=== PATIENT | female | born 1940 | race Caucasian/White ===

== ENCOUNTER 2016-11-06 15:25 | Emergency (ER) | payer MEDICAID, MEDICARE ==
--- NOTE | 2016-11-06 15:51 | ER Document Report ---
ED Medical Screen (RME) - General Chief Complaint: Weakness Stated Complaint: WEAKNESS AND RASH Time Seen by Provider: 11/06/16 15:43 Mode of Arrival: Wheelchair Information source: Patient, Relative Notes: 76-year-old female history of dementia presents with complaints of a rash. Son notes that she has difficulty remembering if she is having bowel movements or urinating on herself and now has a rash secondary to this. Son also notes patient has had intermittent episodes of weakness I have greeted and performed a rapid initial assessment of this patient. A comprehensive ED assessment and evaluation of the patient, analysis of test results and completion of the medical decision making process will be conducted by additional ED providers. PHYSICAL EXAMINATION: GENERAL: Well-appearing, well-nourished and in no acute distress. HEAD: Atraumatic, normocephalic. EYES: Pupils equal round extraocular movements intact, conjunctiva are normal. ENT: Nares patent NECK: Normal range of motion LUNGS: No respiratory distress Musculoskeletal: Normal range of motion NEUROLOGICAL: History of dementia patient does have random statements that son states is normal for her PSYCH: Normal mood, normal affect. SKIN: Warm, Dry, normal turgor, no rashes or lesions noted. TRAVEL OUTSIDE OF THE [place] IN LAST 30 DAYS: No - HPI Onset: Last week Onset/Duration: Persistent Quality of pain: No pain Severity: Mild Pain Level: Denies - Related Data Allergies/Adverse Reactions: ezetimibe [From Zetia] Allergy (Verified 11/06/16 15:42) Iodinated Contrast- Oral and IV Dye [IV Dye, Iodine Containing] Allergy ( Verified 11/06/16 15:42) nitroglycerin [From Nitro-Dur] Allergy (Verified 11/06/16 15:42) Sulfa (Sulfonamide Antibiotics) Allergy (Verified 11/06/16 15:42) Home Medications: Current Home Medications Atorvastatin Calcium 20 mg PO DAILY 11/06/16 [History] Citalopram Hydrobromide [Celexa 10 mg Tablet] 10 mg PO DAILY 11/06/16 [History] Donepezil HCl [Aricept 5 mg Tablet] 5 mg PO DAILY 11/06/16 [History] Hydrochlorothiazide 25 mg PO DAILY 11/06/16 [History] Nitrofurantoin Monohyd/M-Cryst [Macrobid 100 mg Capsule] 100 mg PO BID 11/06/16 [History] Past Medical History - Past Medical History Cardiac Medical History: Reports: Hx Heart Attack - date unknown Denies: Hx Coronary Artery Disease, Hx Hypertension Pulmonary Medical History: Reports: Hx Asthma, Hx Bronchitis Denies: Hx COPD Neurological Medical History: Denies: Hx Cerebrovascular Accident, Hx Seizures Renal/ Medical History: Denies: Hx Peritoneal Dialysis Musculoskeltal Medical History: Denies Hx Arthritis Past Surgical History: Reports: Hx Hysterectomy Physical Exam - Vital signs Vitals: Temp Pulse Resp BP Pulse Ox 98.0 F 86 12 106/56 L 93 11/06/16 15:30 11/06/16 15:30 11/06/16 15:30 11/06/16 15:30 11/06/16 15:30 Course - Vital Signs Vital signs: Temp Pulse Resp BP Pulse Ox 98.0 F 86 12 106/56 L 93 11/06/16 15:30 11/06/16 15:30 11/06/16 15:30 11/06/16 15:30 11/06/16 15:30
[2016-11-06 16:20] LABS: ABSOLUTE BASOPHILS # (AUTO) 0.1 10^3/uL (0.0-0.2); ABSOLUTE LYMPHOCYTES (AUTO) 0.6 10^3/uL (0.5-4.7); ABSOLUTE MONOCYTES (AUTO) 0.6 10^3/uL (0.1-1.4); ABSOLUTE NEUT (AUTO) 10.4 10^3/uL (1.7-8.2); BASOPHILS % (AUTO) 0.6 % (0-2); EOSINOPHILS % (AUTO) 0.3 % (0-6); HEMATOCRIT 42.7 % (36.0-47.0); HEMOGLOBIN 14.8 g/dL (12.0-15.5); HGB HCT DIFFERENCE 1.7; LYMPHOCYTES % (AUTO) 5.3 % (13-45); MEAN CORPUSCULAR HEMOGLOBIN 30.6 pg (27.0-33.4); MEAN CORPUSCULAR HGB CONC 34.6 g/dL (32.0-36.0); MEAN CORPUSCULAR VOLUME 88 fl (80-97); MONOCYTES % (AUTO) 5.4 % (3-13); RED BLOOD COUNT 4.83 10^6/uL (3.72-5.28); RED CELL DISTRIBUTION WIDTH 12.9 % (11.5-14.0); SEGMENTED NEUTROPHILS % (AUTO) 88.4 % (42-78); WHITE BLOOD COUNT 11.7 10^3/uL (4.0-10.5)
[2016-11-06 16:38] LABS: ALANINE AMINOTRANSFERASE 25 U/L (9-52); ALBUMIN 3.9 g/dL (3.5-5.0); ALKALINE PHOSPHATASE 109 U/L (38-126); ASPARTATE AMINO TRANSFERASE 25 U/L (14-36); BILIRUBIN,DIRECT 0.4 mg/dL (0.0-0.4); BILIRUBIN,TOTAL 0.9 mg/dL (0.2-1.3); BLOOD UREA NITROGEN 23 mg/dL (7-20); CALCIUM 9.1 mg/dL (8.4-10.2); CHLORIDE 78 mmol/L (98-107); GLUCOSE 201 mg/dL (75-110); SODIUM 136.1 mmol/L (137-145); TOTAL PROTEIN 7.4 g/dL (6.3-8.2)
[2016-11-06 16:45] LABS: ANION GAP 14 (5-19)
[2016-11-06 16:46] LABS: POTASSIUM 2.6 mmol/L (3.6-5.0)
--- NOTE | 2016-11-06 16:46 | ER Document Report ---
ED General - General Mode of Arrival: Wheelchair Information source: Patient TRAVEL OUTSIDE OF THE [place] IN LAST 30 DAYS: No <GEETA RYAN - Last Filed: 11/06/16 20:13> <KEITH HOPKINS - Last Filed: 11/06/16 23:08> - General Chief Complaint: Weakness Stated Complaint: WEAKNESS AND POSSIBLE RASH Time Seen by Provider: 11/06/16 15:43 Notes: Patient is a 76 year old female that presents to the emergency department today with complaints of "bed sores" on her buttocks. Son at bedside states that the patient has "dementia" and sometimes forgets to go to the bathroom and she soils herself. Son states when giving the patient a bath she noticed what appear to be bedsores on her buttocks. Son at bedside is also requesting that the patient be placed in a fdc facility but sites insurance difficulties as to why he is unable to set this up currently, requests further assistance. (GEETA RYAN) - Related Data Allergies/Adverse Reactions: ezetimibe [From Zetia] Allergy (Verified 11/06/16 15:42) Iodinated Contrast- Oral and IV Dye [IV Dye, Iodine Containing] Allergy ( Verified 11/06/16 15:42) nitroglycerin [From Nitro-Dur] Allergy (Verified 11/06/16 15:42) Sulfa (Sulfonamide Antibiotics) Allergy (Verified 11/06/16 15:42) Home Medications: Current Home Medications Atorvastatin Calcium 20 mg PO DAILY 11/06/16 [History] Citalopram Hydrobromide [Celexa 10 mg Tablet] 10 mg PO DAILY 11/06/16 [History] Donepezil HCl [Aricept 5 mg Tablet] 5 mg PO DAILY 11/06/16 [History] Hydrochlorothiazide 25 mg PO DAILY 11/06/16 [History] Nitrofurantoin Monohyd/M-Cryst [Macrobid 100 mg Capsule] 100 mg PO BID 11/06/16 [History] Past Medical History - General Information source: Patient, Relative - Social History Smoking Status: Former Smoker Cigarette use (# per day): No Frequency of alcohol use: None Drug Abuse: None Lives with: Family Family History: Reviewed & Not Pertinent - Past Medical History Cardiac Medical History: Reports: Hx Heart Attack - date unknown Pulmonary Medical History: Reports: Hx Asthma, Hx Bronchitis Past Surgical History: Reports: Hx Hysterectomy <SHELBYGEETA - Last Filed: 11/06/16 20:13> Review of Systems - Review of Systems Constitutional: No symptoms reported EENT: No symptoms reported Cardiovascular: No symptoms reported Respiratory: No symptoms reported Gastrointestinal: No symptoms reported Genitourinary: No symptoms reported Female Genitourinary: No symptoms reported Musculoskeletal: No symptoms reported Skin: See HPI, Other - "sores on butt" Hematologic/Lymphatic: No symptoms reported Neurological/Psychological: No symptoms reported -: Yes All other systems reviewed and negative <SHELBY,GEETA - Last Filed: 11/06/16 20:13> Physical Exam <LITA RYANON - Last Filed: 11/06/16 20:13> <KEITH HOPKINS - Last Filed: 11/06/16 23:08> - Vital signs Vitals: Temp Pulse Resp BP Pulse Ox 98.0 F 86 12 106/56 L 93 11/06/16 15:30 11/06/16 15:30 11/06/16 15:30 11/06/16 15:30 11/06/16 15:30 - Notes Notes: Physical Exam: General: Alert, appears well. HEENT: Normocephalic. Atraumatic. PERRL. Extraocular movements intact. Oropharynx clear. Neck: Supple. Non-tender. Respiratory: No respiratory distress. Clear and equal breath sounds bilaterally. Cardiovascular: Regular rate and rhythm. Abdominal: Normal Inspection. Non-tender. No distension. Normal Bowel Sounds. Back: Non-tender. No deformity or step off. Extremities: Moves all four extremities. Upper extremities: Normal inspection. Normal ROM. Lower extremities: Normal inspection. No edema. Normal ROM. Neurological: Normal cognition. AAOx4. Normal speech. Psychological: Normal affect. Normal Mood. Skin: Excoriated diaper rash around buttocks. (GEETA RYAN) Course - Laboratory Result Diagrams: 11/06/16 16:08 11/06/16 16:08 <GEETA RYAN - Last Filed: 11/06/16 20:13> - Laboratory Result Diagrams: 11/06/16 16:08 11/06/16 16:08 <KEITH HOPKINS - Last Filed: 11/06/16 23:08> - Re-evaluation Re-evalutation: 11/06/16 18:24 Patient presents emergency room with her son with a chief complaint of skin rash in her genital area. Patient states that the mother has dementia and they have been trying to work as an outpatient to get her into a shelter facility. He says that he takes care of her exclusively that she occasionally forgets that she has to urinate wears depends when he went to change her he noticed a rash a few days ago. She has a excoriated diaper rash present a minor urinary tract infection is awake alert hemodynamically stable and afebrile. Her potassium is little bit low which is consistent with not eating well. She has no acute emergent concerns for needing IV potassium. Went ahead and gave her oral replacement here she is going to go home on oral potassium high any but paste for her rash Macrobid for UTI and discussed reasons for ED follow-up (KEITH HOPKINS) - Vital Signs Vital signs: Temp Pulse Resp BP Pulse Ox 98.1 F 77 16 131/64 H 95 11/06/16 18:31 11/06/16 18:31 11/06/16 18:31 11/06/16 18:31 11/06/16 18:31 - Laboratory Laboratory results interpreted by me: 11/06/16 11/06/16 11/06/16 16:08 16:08 17:01 WBC 11.7 H Seg Neutrophils % 88.4 H Lymphocytes % 5.3 L Absolute Neutrophils 10.4 H Sodium 136.1 L Potassium 2.6 L* Chloride 78 L Carbon Dioxide 44 H* BUN 23 H Glucose 201 H Urine Protein 100 H Urine Glucose (UA) 50 H Urine Blood SMALL H Urine Bilirubin SMALL H Urine Urobilinogen 4.0 H Ur Leukocyte Esterase TRACE H Discharge <GEETA RYAN - Last Filed: 11/06/16 20:13> <KEITH HOPKINS - Last Filed: 11/06/16 23:08> - Discharge Clinical Impression: Hypokalemia, mild uti, Excoriated rash Condition: Stable Disposition: HOME, SELF-CARE Additional Instructions: Hypokalemia You have an abnormally decreased level of serum potassium. Hypokalemia may cause weakness, fatigue, or heart rhythm abnormalities. Sometimes there are no symptoms at all. Usually, low serum potassium is due to taking diuretics ( water pills). It can also be due to excessive vomiting or diarrhea. If no obvious cause is evident, further evaluation will be necessary. Treatment is usually oral potassium supplements. Take these exactly as prescribed. You may also want to select foods which are naturally high in potassium -- fruits (such as bananas, cantaloupe, grapes, oranges, prunes, tomatoes), fresh vegetables (potatoes, spinach, beans, peas), orange or tomato juice, tomato pasta sauce, milk, fish (halibut, tuna, salmon, rk) A follow-up blood test is usually performed to assure that the potassium is returning to normal. Call the physician if you suffer severe weakness, muscle twitching or cramping, palpitations (pounding or irregular heartbeat), or any other new or alarming symptoms. Diaper Rash Your has diaper dermatitis. This rash can be caused by prolonged contact with urine or stools, or may be due to an infection by angelina (yeast). Diaper dermatitis often follows treatment with antibiotics, due to changes in the stool. Prescription ointments are used for severe cases, or cases where yeast seems to be responsible. Many [id number] powders or creams actually cause or worsen diaper dermatitis. Once diaper dermatitis has begun, it is very important to keep the baby dry. Even a short time in a wet or soiled diaper can make the dermatitis flare. Wash baby's bottom frequently in plain warm water, especially when changing the diaper after a bowel movement. Let the skin air-dry several minutes before diapering. Leaving baby undiapered for a few hours daily can help. Healing may take two weeks. See the doctor if the rash worsens, or if other alarming symptoms arise. Urinary Tract Infection Your evaluation indicates that you have a urinary tract infection. This is due to germs growing in the bladder. This is a common problem. This infection usually responds quickly to antibiotics. Your antibiotic should be taken exactly as prescribed. Drink plenty of fluids -- three to four quarts a day. Occasionally, a bladder anesthetic will be prescribed to help stop the feeling of urgency until the antibiotic has a chance to clear the infection. This may cause your urine to be dark orange. Certain urine infections require a culture. If the doctor obtained a culture, the results will be back in two days. You should call to see if a change in treatment is needed. A repeat urinalysis after you finish treatment is often recommended. The physician will let you know if further testing is required. Call the doctor if you develop fever, chills, flank pain, inability to urinate, or blood in the urine. Prescriptions: Miscellaneous Medication [Happy Hiney Cream] 1 applic TOP ASDIR PRN #30 gm PRN Reason: Nitrofurantoin/Nitrofuran Mac [Macrobid 100 mg Capsule] 1 tab PO BID #20 capsule Potassium Bicarbonate/Cit AC [K-Lyte Tablet Eff] 25 meq PO DAILY #10 tablet.eff Referrals: NOEL AWAD MD [Primary Care Provider] - (In 2-3 days return for increasing worsening or new symptoms) Scribe Attestation: 11/06/16 18:23 I personally performed the services described in the documentation reviewed the documentation recorded by my scribe in my presence and it accurately and completely records my words and actions (KEITH HOPKINS) Scribe Documentation - Scribe Written by Scrsaie:: Karson Ordaz, 11/06/20162011 acting as scribe for :: David <GEETA RYAN - Last Filed: 11/06/16 20:13>
[2016-11-06 16:47] LABS: CARBON DIOXIDE 44 mmol/L (22-30)
[2016-11-06] MEDS ORDERED: POTASSIUM CHLORIDE 20 MEQ/15 ML UDCUP PO ONE (16:48)
[2016-11-06 17:18] LABS: APPEARANCE,URINE CLOUDY; BILIRUBIN,URINE SMALL (NEGATIVE); GLUCOSE, URINE 50 mg/dL (NEGATIVE); KETONES,URINE NEGATIVE (NEGATIVE); LEUKOCYTE ESTERASE,URINE TRACE (NEGATIVE); NITRITE,URINE NEGATIVE (NEGATIVE); PROTEIN,URINE 100 mg/dL (NEGATIVE); URINE SPECIFIC GRAVITY 1.027
[2016-11-06] MEDS ORDERED: NITROFURANTOIN MONOHYD/M-CRYST 100 MG CAPSULE PO ONE (18:03)
[2016-11-06 18:33] VITALS: BP 131/64
== END 2016-11-06 18:46 | disposition home or self-care (01) ==
LOC: ER 15:25
DX: E87.6 Hypokalemia (principal); R21 Rash and other nonspecific skin eruption; R53.1 Weakness; Z79.899 Other long term (current) drug therapy; Z87.891 Personal history of nicotine dependence
CPT/HCPCS: 99285; 51701; 36415; 85025; 80053; 81001; A9270

== ENCOUNTER 2017-03-29 21:31 | Emergency (ER) | payer MEDICARE ==
--- NOTE | 2017-03-29 21:41 | ER Document Report ---
ED Fall - General Chief Complaint: Fall Stated Complaint: FALL/NOSE PAIN Time Seen by Provider: 03/29/17 21:35 Notes: Patient is a 76-year-old female who tripped getting off the couch and landed on her nose. She initially had some epistaxis, which has resolved. Not on any blood thinners and she denies LOC. Tetanus is UTD. Denies neck pain, loose teeth , open wounds or any other injuries. TRAVEL OUTSIDE OF THE [place] IN LAST 30 DAYS: No - Related data Allergies/Adverse Reactions: ezetimibe [From Zetia] Allergy (Verified 11/06/16 15:42) Iodinated Contrast- Oral and IV Dye [IV Dye, Iodine Containing] Allergy ( Verified 11/06/16 15:42) nitroglycerin [From Nitro-Dur] Allergy (Verified 11/06/16 15:42) Sulfa (Sulfonamide Antibiotics) Allergy (Verified 11/06/16 15:42) Past Medical History - General Information source: Patient, Emergency Med Personnel - Social History Smoking Status: Unknown if Ever Smoked Family History: Reviewed & Not Pertinent - Past Medical History Cardiac Medical History: Reports: Hx Heart Attack - date unknown Denies: Hx Coronary Artery Disease, Hx Hypertension Pulmonary Medical History: Reports: Hx Asthma, Hx Bronchitis Denies: Hx COPD Neurological Medical History: Denies: Hx Cerebrovascular Accident, Hx Seizures Renal/ Medical History: Denies: Hx Peritoneal Dialysis Musculoskeltal Medical History: Denies Hx Arthritis Past Surgical History: Reports: Hx Hysterectomy Review of Systems - Review of Systems Notes: REVIEW OF SYSTEMS: CONSTITUTIONAL: -fevers, -chills EENT: -eye pain, -difficulty swallowing, -nasal congestion, +nasal pain CARDIOVASCULAR:-chest pain, -syncope. RESPIRATORY: -cough, -SOB GASTROINTESTINAL: -abdominal pain, -nausea, -vomiting, -diarrhea GENITOURINARY: -dysuria, -hematuria MUSCULOSKELETAL: -back pain, -neck pain SKIN: -rash or skin lesions. HEMATOLOGIC: -easy bruising or bleeding. LYMPHATIC: -swollen, enlarged glands. NEUROLOGICAL: -altered mental status or loss of consciousness, -headache, - neurologic symptoms PSYCHIATRIC: -anxiety, -depression. ALL OTHER SYSTEMS REVIEWED AND NEGATIVE. Physical Exam - Vital signs Vitals: Temp Pulse Resp BP Pulse Ox 97.5 F 77 16 161/72 H 100 03/29/17 21:49 03/29/17 21:49 03/29/17 21:49 03/29/17 21:49 03/29/17 21:49 - Notes Notes: PHYSICAL EXAMINATION: GENERAL: Well-appearing, well-nourished and in no acute distress. HEAD: Atraumatic, normocephalic. EYES: Pupils equal round and reactive to light, extraocular movements intact, sclera anicteric, conjunctiva are normal. ENT: small abrasions over nose, no active epistaxis or septal hematoma, no nasal deformity, nares patent, oropharynx clear without exudates. Moist mucous membranes. NECK: Normal range of motion, supple without lymphadenopathy LUNGS: Breath sounds clear to auscultation bilaterally and equal. No wheezes rales or rhonchi. HEART: Regular rate and rhythm without murmurs ABDOMEN: Soft, nontender, normoactive bowel sounds. No guarding, no rebound. No masses appreciated. EXTREMITIES: Normal range of motion, no pitting or edema. No cyanosis. NEUROLOGICAL: Cranial nerves grossly intact. Normal speech, normal gait. Normal sensory and motor exams. PSYCH: Normal mood, normal affect. SKIN: Warm, Dry, normal turgor, no rashes or lesions noted. Course - Re-evaluation Re-evalutation: Patient with a mechanical fall and abrasions over her nose, no active epistaxis or septal hematoma. CT face and head obtained due to age, but this did not show any acute fractures or intracranial abnormalities. Instructed her about using anti-inflammatories and ice packs for her nasal contusion with strict return precautions. - Vital Signs Vital signs: Temp Pulse Resp BP Pulse Ox 97.5 F 77 16 161/72 H 100 03/29/17 21:49 03/29/17 21:49 03/29/17 21:49 03/29/17 21:49 03/29/17 21:49 - Diagnostic Test Radiology reviewed: Image reviewed, Reports reviewed Radiology results interpreted by me: CT Head/Facial: NAD Discharge - Discharge Clinical Impression: Epistaxis Contusion of nose Qualifiers: Encounter type: initial encounter Qualified Code(s): S00.33XA - Contusion of nose, initial encounter Condition: Stable Disposition: HOME, SELF-CARE Additional Instructions: Nosebleed Instructions There is a significant chance of re-bleeding following a nosebleed. Proper care makes this less likely. Do not touch the nose for 24 hours. Do not blow the nose forcefully for one week. After 24 hours, gently apply Vaseline ointment to both nostrils with the tip of a finger, three times a day, for one week. It's normal to have a bloody mucous discharge for a few days. If active bleeding recurs, blow all the blood from the nose, then sit quietly and pinch the nose as firmly as possible for 10 minutes. If this does not stop the bleeding, return for further care. If packing was left in the nose and it starts to come out of the nostril, either tuck it back in or cut it off. Don't pull it out. Return for recheck and removal of the packing when instructed. Persons with frequent nosebleeds should avoid aspirin (unless prescribed for another reason). Humidity in the bedroom, and petroleum jelly applied to the nostrils at night may help. Contusion Your injury has resulted in a contusion -- a crushing of the deep tissues. No injury to important structures was detected during the physician's exam. Contusions vary in the amount of pain they cause, and in the length of time required for healing. Typically, the area will become bruised, and will remain painful to touch for two or three weeks. However, most patients are back to working and playing within a few days. After the initial period of rest and cold-packs, your symptoms (together with the doctor's recommendations) will determine how rapidly you can get back to full activity. Usually this means "do what feels okay, but don't do things that hurt." If re-examination was recommended, it's important to follow up as instructed. Call the doctor or return any time if pain increases, if swelling becomes severe, if you develop numbness or weakness in an injured extremity, or if any other alarming symptoms occur. Forms: Elevated Blood Pressure
[2017-03-29 21:53] VITALS: BP 161/72
--- NOTE | 2017-03-29 22:36 | RADIOLOGY REPORT (SQ) ---
EXAM DESCRIPTION: CT HEAD WITHOUT COMPLETED DATE/TIME: 03/29/2017 9:55 pm REASON FOR STUDY: fall COMPARISON: None. TECHNIQUE: Axial images acquired through the brain without intravenous contrast. Images reviewed wi th bone, brain and subdural windows. Images stored on PACS. All CT scanners at this facility use dose modulation, iterative reconstruction, and/or weight based d osing when appropriate to reduce radiation dose to as low as reasonably achievable (ALARA). [facility]: Dose Right [facility]: CareDose [facility]: Dose Right [facility]: Teradose 4D [facility]: [employer] RADIATION DOSE: CT Rad equipment meets quality standard of care and radiation dose reduction techniq ues were employed. CTDIvol: 64.6 mGy. DLP: 1034 mGy-cm. mGy. LIMITATIONS: None. FINDINGS: VENTRICLES: Normal size and contour. CEREBRUM: No masses. No hemorrhage. No midline shift. No evidence for acute infarction. Normal gra y/white matter differentiation. No areas of low density in the white matter. CEREBELLUM: No masses. No hemorrhage. No alteration of density. No evidence for acute infarction. EXTRAAXIAL SPACES: No fluid collections. No masses. ORBITS AND GLOBE: No intra- or extraconal masses. Normal contour of globe without masses. CALVARIUM: No fracture. PARANASAL SINUSES: No fluid or mucosal thickening. SOFT TISSUES: No mass or hematoma. OTHER: No other significant finding. IMPRESSION: No acute intracranial findings. EVIDENCE OF ACUTE STROKE: NO. COMMENT: Quality ID # [id number]: Final reports with documentation of one or more dose reduction techniques (e.g., Automated exposure control, adjustment of the mA and/or kV according to patient size, use of iterative reconstruction technique) TECHNICAL DOCUMENTATION: JOB ID: [id number] [place]-72 2010 [employer]- All Rights Reserved
--- NOTE | 2017-03-29 22:38 | RADIOLOGY REPORT (SQ) ---
EXAM DESCRIPTION: CT FACIAL AREA WITHOUT COMPLETED DATE/TIME: 03/29/2017 9:55 pm REASON FOR STUDY: fall COMPARISON: None. TECHNIQUE: Noncontrasted images through the facial bones and orbits windowed for bone and soft tissu e. Additional coronal and sagittal reconstructed images reviewed. All images stored on PACS. All CT scanners at this facility use dose modulation, iterative reconstruction, and/or weight based d osing when appropriate to reduce radiation dose to as low as reasonably achievable (ALARA). [facility]: Dose Right [facility]: CareDose [facility]: Dose Right [facility]: Teradose 4D [facility]: [employer] RADIATION DOSE: CT Rad equipment meets quality standard of care and radiation dose reduction techniq ues were employed. CTDIvol: 30.4 mGy. DLP: 591 mGy-cm. mGy. LIMITATIONS: None. FINDINGS: FACIAL BONES: No fracture or bone lesion. ORBITS: Intact. No fracture. Symmetric intact globes and retroorbital soft tissues. PARANASAL SINUSES: Clear. No significant mucosal thickening, mass or fluid. No nasal polyps. Maxill jordan sinus outlets are patent. SOFT TISSUES: No mass or edema. INFERIOR BRAIN: Limited view. No acute findings. OTHER: No other significant finding. IMPRESSION: NO ACUTE FINDINGS. TECHNICAL DOCUMENTATION: JOB ID: [id number] [place]-72 Quality ID # [id number]: Final reports with documentation of one or more dose reduction techniques (e.g., Au tomated exposure control, adjustment of the mA and/or kV according to patient size, use of iterative reconstruction technique) 2010 [employer]- All Rights Reserved
== END 2017-03-29 23:27 | disposition home or self-care (01) ==
LOC: ER 21:31
DX: S00.33XA Contusion of nose, initial encounter (principal); J34.89 Other specified disorders of nose and nasal sinuses; R04.0 Epistaxis; W01.0XXA Fall on same level from slipping, tripping and stumbling without subsequent striking against object, initial encounter
CPT/HCPCS: 70450; 70486; 99284

== ENCOUNTER → 2017-08-29 | Outpatient (CLI) | payer MEDICARE, MEDICAID | LOC: OD 10:17 | PROVIDERS: ATTEND Specialist | DX: F03.90 Unspecified dementia, unspecified severity, without behavioral disturbance, psychotic disturbance, mood disturbance, and anxiety (principal) | CPT/HCPCS: 36415; 82607 ==

== ENCOUNTER 2018-09-19 23:20 | Emergency (ER) | payer MEDICARE, OTHER ==
--- NOTE | 2018-09-20 00:44 | RADIOLOGY REPORT (SQ) ---
EXAM DESCRIPTION: CT HEAD WITHOUT IV CONTRAST, CT CERVICAL SPINE WITHOUT IV CONTRAST COMPLETED DATE/TME: 09/20/2018 00:04 CLINICAL HISTORY: 78 years, Female, fall, head trauma COMPARISON: None. TECHNIQUE: CT brain and cervical spine was performed without contrast. This exam was performed according to our departmental dose optimization program which includes use of automated exposure control, adjustment of the mA and/or kV according to patient size and/or use of iterative reconstruction technique. Images stored on PACS. All CT scanners at this facility use dose modulation, iterative reconstruction, and/or weight based dosing when appropriate to reduce radiation dose to as low as reasonably achievable (ALARA). [facility]: Dose Right [facility]: CareDose [facility]: Dose Right [facility]: Teradose 4D [facility]: [employer] LIMITATIONS: None. FINDINGS: Brain: Multifocal regions of patchy hypoattenuation are present in a subcortical and periventricular deep white matter distribution, nonspecific; however, most likely represent small vessel ischemic disease, age indeterminate. The ventricles, and sulci are enlarged compatible with underlying volume loss. The blackburn-white matter differentiation is preserved. There is no mass effect, midline shift, intra- or extra-axial fluid collection/acute hemorrhage. The osseous structures are unremarkable. The paranasal sinuses and mastoid air cells are clear. RIGHT frontal periorbital and soft tissue swelling/hematoma measuring up to 8 mm in thickness. IMPRESSION: 1. No acute intracranial abnormalities. Nonspecific white matter change most likely small vessel ischemic disease, age indeterminate. 2. CT is insensitive for early evaluation of acute stroke. If there is clinical concern for acute ischemia, an MRI may be considered. 3. RIGHT frontal periorbital and soft tissue swelling/hematoma measuring up to 8 mm in thickness. Cervical spine: Grade 1 retrolisthesis of C3 relative to C4 suspected secondary to degenerative change at that level. There is otherwise normal alignment of the cervical spine without fracture or subluxation. The facets are normal in alignment bilaterally. The posterior elements including the spinous processes are intact. Morphology and attenuation of the vertebral bodies and intervertebral disk spaces is compatible with degenerative change. Multilevel loss of intervertebral disk height. Multilevel posterior osseous spurring results in neuroforaminal narrowing throughout the cervical spine. Multilevel posterior osseous spurring, additionally reveals at least moderate multilevel central spinal canal narrowing. The pre-and paravertebral soft tissues are within normal limits. The bilateral lung apices reveal nonspecific opacification may be seen secondary to scarring. IMPRESSION: 1. Moderate to severe multilevel degenerative change as detailed above. If the patient's symptoms persist follow-up evaluation with MRI may be considered. 2. No fracture or acute subluxation. TECHNICAL DOCUMENTATION: Quality ID # [id number]: Final reports with documentation of one or more dose reduction techniques (e.g., Automated exposure control, adjustment of the mA and/or kV according to patient size, use of iterative reconstruction technique) copyright 2011 [employer]- All Rights Reserved
--- NOTE | 2018-09-20 00:51 | ER Document Report ---
ED General - General Chief Complaint: Fall Injury Stated Complaint: FALL Time Seen by Provider: 09/20/18 00:02 Primary Care Provider: RICHARD COLLAZO MD [Primary Care Provider] - Follow up as needed Cannot obtain history due to: Dementia Notes: Patient is a 78-year-old female with history of advanced dementia who presents after a mechanical fall striking her right forehead at a nursing facility. No additional history is able to be obtained as the patient does have profound dementia. There apparently was no loss of consciousness, vomiting or change in behavior since that time. Patient does not take any form of anticoagulation. The patient denies any symptoms or pain at the time of my assessment. When I asked her if she had a fall tonight she states "will I certainly hope not". TRAVEL OUTSIDE OF THE [place] IN LAST 30 DAYS: No - Related Data Allergies/Adverse Reactions: ezetimibe [From Zetia] Allergy (Verified 11/06/16 15:42) Iodinated Contrast- Oral and IV Dye [IV Dye, Iodine Containing] Allergy (Verified 11/06/16 15:42) nitroglycerin [From Nitro-Dur] Allergy (Verified 11/06/16 15:42) Sulfa (Sulfonamide Antibiotics) Allergy (Verified 11/06/16 15:42) Past Medical History - General Information source: Patient Cannot obtain history due to: Dementia - Social History Smoking Status: Unknown if Ever Smoked Frequency of alcohol use: None Drug Abuse: None Lives with: [facility] Family History: Reviewed & Not Pertinent Patient has suicidal ideation: No Patient has homicidal ideation: No - Past Medical History Cardiac Medical History: Reports: Hx Heart Attack - date unknown Denies: Hx Coronary Artery Disease, Hx Hypertension Pulmonary Medical History: Reports: Hx Asthma, Hx Bronchitis Denies: Hx COPD Neurological Medical History: Denies: Hx Cerebrovascular Accident, Hx Seizures Renal/ Medical History: Denies: Hx Peritoneal Dialysis Musculoskeletal Medical History: Denies Hx Arthritis Past Surgical History: Reports: Hx Hysterectomy Review of Systems - Review of Systems Notes: Constitutional: Negative for fever. Eyes: Negative for visual changes. ENT: Negative for facial injury Cardiovascular: Negative for chest injury. Respiratory: Negative for shortness of breath. Gastrointestinal: Negative for abdominal injury. Genitourinary: Negative for genital injury Musculoskeletal: Negative for back injury. Skin: Negative for laceration/abrasions. Neurological: Positive for head injury. Physical Exam - Vital signs Vitals: Temp Pulse Resp BP Pulse Ox 97.4 F 72 15 144/73 H 97 09/19/18 23:24 09/19/18 23:24 09/19/18 23:24 09/19/18 23:24 09/19/18 23:24 Interpretation: Hypertensive Notes: PHYSICAL EXAMINATION: GENERAL: Well-appearing, no acute distress. HEAD: Traumatic ecchymosis over the right forehead otherwise atraumatic normocephalic. EYES: Pupils equal round and reactive to light, extraocular movements intact, sclera anicteric, conjunctiva are normal. ENT: nares patent, no oral pharyngeal trauma. No hemotympanum, no Skaggs's sign, no raccoon eyes. NECK: No midline cervical spine tenderness. Patient able to move their head to 45 bilaterally without any discomfort. LUNGS: Breath sounds clear to auscultation bilaterally and equal. No wheezes rales or rhonchi. HEART: Regular rate and rhythm without murmurs. CHEST WALL: No ecchymosis over the chest wall. ABDOMEN: Soft, nontender, normoactive bowel sounds. No guarding, no rebound. No seatbelt sign. EXTREMITIES: Normal range of motion, no pitting or edema. No long bone deformities. BACK: No midline spinal tenderness, step-offs, or deformities. NEUROLOGICAL: Face symmetric. Tongue protrudes midline. Extraocular motions intact. Pupils are 2 mm and equally reactive. Normal speech. 5 out of 5 strength in both the distal and proximal upper and lower extremities bilaterally. Sensation is grossly intact throughout. PSYCH: Alert, oriented only to person SKIN: Warm, Dry, normal turgor, traumatic ecchymosis over the right forehead Course - Re-evaluation Re-evalutation: 09/20/18 00:50 Presentation of a well appearing elderly patient in no acute distress, vitals within normal limits after a mechanical fall. No focal neurologic deficits on exam, no evidence of basilar skull fracture on exam without evidence of hemotympanum, raccoon eyes, or periauricular hematoma. No papilledema. Patient is not on anticoagulation. GCS is 15. No loss of consciousness. No episodes of vomiting. However, based on patient's age a CT of the head has been obtained which is negative for any acute intracranial bleed. Likewise, patient was unable to be clinically cleared due to age by [place] cervical spine criteria. A CT of the cervical spine was also obtained and likewise is negative for any acute fracture. No indication for further imaging of the cervical spine. Patient has no focal deformities or limited range of motion in any joint space. Chest and abdominal exam are benign without any focal tenderness, shortness of breath, or bruising over the chest or abdominal wall. Patient has no flank tenderness. There is no obvious findings on trauma exam today and therefore no further imaging or evaluation will be obtained at this time. At this time will discharg e with return precautions and follow-up recommendations. Verbal discharge instructions given a the bedside and opportunity for questions given. Medication warnings reviewed. Patient is in agreement with this plan and has verbalized understanding of return precautions and the need for primary care follow-up in the next 24-72 hours. - Vital Signs Vital signs: Temp Pulse Resp BP Pulse Ox 97.8 F 75 16 129/88 H 97 09/20/18 02:58 09/20/18 02:58 09/20/18 02:58 09/20/18 02:58 09/20/18 02:58 - Diagnostic Test Radiology reviewed: Image reviewed, Reports reviewed Radiology results interpreted by me: 09/20/18 00:51 CT head: No acute intracranial bleed or evidence of skull fracture Discharge - Discharge Clinical Impression: Fall Qualifiers: Encounter type: initial encounter Qualified Code(s): W19.XXXA - Unspecified fall, initial encounter Head trauma Qualifiers: Encounter type: initial encounter Qualified Code(s): S09.90XA - Unspecified injury of head, initial encounter Traumatic hematoma of forehead Qualifiers: Encounter type: initial encounter Qualified Code(s): S00.83XA - Contusion of other part of head, initial encounter Condition: Good Disposition: HOME, SELF-CARE Additional Instructions: You have been seen in the Emergency Department (ED) today following a fall. Your workup today did not reveal any injuries that require you to stay in the hospital. You can expect, though, to be stiff and sore for the next several days. You can take Tylenol 1000 mg every 6 hours as needed for pain. You can apply a hot pack or electric heating pad to the sore areas. You can also use topical "Aspercreme with lidocaine" to sore areas as needed. Please follow up with your primary care doctor as soon as possible regarding today's ED visit and your recent fall. Call your doctor or return to the ED if you develop a sudden or severe headache, confusion, slurred speech, facial droop, weakness or numbness in any arm or leg, extreme fatigue, vomiting more than two times, severe abdominal pain, or other symptoms that concern you. Referrals: RICHARD COLLAZO MD [Primary Care Provider] - Follow up as needed
[2018-09-20 02:59] VITALS: BP 129/88
== END 2018-09-20 02:59 | disposition home or self-care (01) ==
LOC: ER 23:20
DX: S00.83XA Contusion of other part of head, initial encounter (principal); W19.XXXA Unspecified fall, initial encounter; F03.90 Unspecified dementia, unspecified severity, without behavioral disturbance, psychotic disturbance, mood disturbance, and anxiety; J45.909 Unspecified asthma, uncomplicated; Z91.040 Latex allergy status; Z88.8 Allergy status to other drugs, medicaments and biological substances; Z88.2 Allergy status to sulfonamides
CPT/HCPCS: 70450; 72125; 99284

== ENCOUNTER 2019-05-23 05:27 | Emergency (ER) | payer MEDICARE, MEDICAID ==
--- NOTE | 2019-05-23 05:35 | ER Document Report ---
ED General - General Stated Complaint: LEFT SHOULDER PAIN Time Seen by Provider: 05/23/19 05:31 Primary Care Provider: RICHARD COLLAZO MD [Primary Care Provider] - Follow up as needed Notes: 78-year-old female presents having been found next to her bed. She is fully dressed but does not member what happened. Lives in an Alzheimer's unit at [facility] facility brought in by EMS normal vital signs no fever no strong smelling urine and the patient has no complaints and states "I was just visiting my neighbor." There is some question of left shoulder pain but she actually denies this and says "it is a little stiff but I can move it" as she ranges it fully. TRAVEL OUTSIDE OF THE [place] IN LAST 30 DAYS: No - Related Data Allergies/Adverse Reactions: ezetimibe [From Zetia] Allergy (Verified 11/06/16 15:42) Iodinated Contrast Media [IV Dye, Iodine Containing] Allergy (Verified 11/06/16 15:42) nitroglycerin [From Nitro-Dur] Allergy (Verified 11/06/16 15:42) Sulfa (Sulfonamide Antibiotics) Allergy (Verified 11/06/16 15:42) Past Medical History - General Cannot obtain history due to: Dementia - Social History Smoking Status: Never Smoker Family History: Reviewed & Not Pertinent - Past Medical History Cardiac Medical History: Reports: Hx Heart Attack - date unknown Denies: Hx Coronary Artery Disease, Hx Hypertension Pulmonary Medical History: Reports: Hx Asthma, Hx Bronchitis Denies: Hx COPD Neurological Medical History: Denies: Hx Cerebrovascular Accident, Hx Seizures Renal/ Medical History: Denies: Hx Peritoneal Dialysis Musculoskeletal Medical History: Denies Hx Arthritis Past Surgical History: Reports: Hx Hysterectomy Review of Systems - Review of Systems Notes: REVIEW OF SYSTEMS Angina PHYSICAL EXAMINATION General: No acute distress, well-nourished Head: Atraumatic, normocephalic ENT: Mouth normal, oropharynx moist, no exudates or tonsillar enlargement Eyes: Conjunctiva normal, pupils equal, lids normal Neck: No JVD, supple, no guarding CVS: Normal rate, regular rhythm, no murmurs Resp: No resp distress, equal and normal breath sounds bilaterally GI: Nondistended, soft, no tenderness to palpation, no rebound or guarding Ext: No deformities, no edema, normal range of motion in upper and lower ext Back: No CVA or midline TTP Skin: No rash, warm Lymphatic: No lymphadeopathy noted Neuro: Awake, alert. Face symmetric. GCS 14. There is baseline per documentation from facility. -: Yes ROS unobtainable due to patient's medical condition Physical Exam - Vital signs Vitals: Temp Pulse Resp BP Pulse Ox 97.5 F 74 18 151/84 H 100 05/23/19 05:29 05/23/19 05:05/23/19 05:05/23/19 05:05/23/19 05:29 Course - Re-evaluation Re-evalutation: 05/23/19 05:40 Very pleasant demented female presenting with being found next to her bed conceivably she slid out of bed or fell but has absolutely no trauma despite reports of left shoulder pain is ranging and excellent, has no signs of bruising deformity or swelling I do not think this is an altered mental status given what I am understanding about her baseline and her vital signs are normal so she will be transferred back to her facility. I have discussed with the patient there likely diagnosis, aftercare plan, follow-up plans and my usual and customary return precautions. A given nd dementia cannot verbalize understanding. - Vital Signs Vital signs: Temp Pulse Resp BP Pulse Ox 97.5 F 74 18 151/84 H 100 05/23/19 05:05/23/19 05:05/23/19 05:05/23/19 05:05/23/19 05:29 Discharge - Discharge Clinical Impression: Fall from bed, initial encounter Condition: Good Disposition: HOME, SELF-CARE Instructions: Contusion (OM) Referrals: RICHARD COLLAZO MD [Primary Care Provider] - Follow up as needed
[2019-05-23 07:29] VITALS: BP 160/53
== END 2019-05-23 06:35 | disposition home or self-care (01) ==
LOC: ER 05:27
DX: Z04.3 Encounter for examination and observation following other accident (principal); G30.9 Alzheimer's disease, unspecified; F02.80 Dementia in other diseases classified elsewhere, unspecified severity, without behavioral disturbance, psychotic disturbance, mood disturbance, and anxiety; J45.909 Unspecified asthma, uncomplicated; Z88.8 Allergy status to other drugs, medicaments and biological substances; Z91.041 Radiographic dye allergy status; Z88.2 Allergy status to sulfonamides
CPT/HCPCS: 99283

== ENCOUNTER 2020-02-17 15:19 | Emergency (ER) | payer MEDICARE, MEDICAID ==
[2020-02-17] MEDS ORDERED: ACETAMINOPHEN 325 MG TABLET PO ONE (20:13)
--- NOTE | 2020-02-17 20:16 | ER Document Report ---
ED Fall - General Chief Complaint: Fall Stated Complaint: FALL/FACIAL ABRASIONS Time Seen by Provider: 02/17/20 20:05 Primary Care Provider: PETTY ARGUETA DO [ACTIVE STAFF] - Follow up in 3-5 days Notes: Patient is a 79 year old female that comes to the Emergency Department for chief complaint of a fall. Patient comes by EMS from the local Alzheimer's unit, reportedly patient was outside, tripped in a small hole in the ground and fell, she complains of abrasions to the right side of the face and bridge of the nose on the left side. She denies any other complaints. Per report patient did not have loss of consciousness, vomiting, or any other injuries. Patient is not on a blood thinner per her records. Patient is completely disoriented and cannot give any meaningful history although she is cooperative and alert. TRAVEL OUTSIDE OF THE [place] IN LAST 30 DAYS: No - Related data Allergies/Adverse Reactions: ezetimibe [From Zetia] Allergy (Verified 02/17/20 15:35) Iodinated Contrast Media [IV Dye, Iodine Containing] Allergy (Verified 02/17/20 15:35) nitroglycerin [From Nitro-Dur] Allergy (Verified 02/17/20 15:35) Sulfa (Sulfonamide Antibiotics) Allergy (Verified 02/17/20 15:35) Past Medical History - General Information source: Patient - Social History Smoking Status: Unknown if Ever Smoked Frequency of alcohol use: None Drug Abuse: None Lives with: [facility] Family History: Reviewed & Not Pertinent Patient has homicidal ideation: No - Past Medical History Cardiac Medical History: Reports: Hx Heart Attack - date unknown Denies: Hx Coronary Artery Disease, Hx Hypertension Pulmonary Medical History: Reports: Hx Asthma, Hx Bronchitis Denies: Hx COPD Neurological Medical History: Denies: Hx Cerebrovascular Accident, Hx Seizures Renal/ Medical History: Denies: Hx Peritoneal Dialysis Musculoskeletal Medical History: Denies Hx Arthritis Past Surgical History: Reports: Hx Hysterectomy - Immunizations Immunizations up to date: Yes Hx Diphtheria, Pertussis, Tetanus Vaccination: Yes Review of Systems - Review of Systems Constitutional: No symptoms reported EENT: See HPI Cardiovascular: No symptoms reported Respiratory: No symptoms reported Gastrointestinal: No symptoms reported Genitourinary: No symptoms reported Female Genitourinary: No symptoms reported Musculoskeletal: See HPI Skin: See HPI Hematologic/Lymphatic: No symptoms reported Neurological/Psychological: No symptoms reported Physical Exam - Vital signs Vitals: Temp Pulse Resp BP Pulse Ox 98.4 F 63 18 136/65 H 96 02/17/20 15:36 02/17/20 15:36 02/17/20 15:36 02/17/20 15:36 02/17/20 15:36 - Notes Notes: GENERAL: Alert, interacts well. No acute distress. HEAD: Normocephalic. There is an abrasion over the right lateral zygomatic area and over the mid lateral aspect of the bridge of the nose. There are no deep or open wounds, no current bleeding, no swelling. No other traumatic findings noted. EYES: Pupils equal, round, and reactive to light. Extraocular movements intact. ENT: Oral mucosa moist, tongue midline. Oropharynx unremarkable. Airway patent. Nares patent, sinuses non-tender, no epistaxis. No septal hematoma. Ear canals unremarkable, TM's intact. NECK: Full range of motion. Supple. Trachea midline. No lymphadenopathy. LUNGS: Clear to auscultation bilaterally, no wheezes, rales, or rhonchi. No respiratory distress. Non-tender chest wall. No signs of trauma. HEART: Regular rate and rhythm. No murmur ABDOMEN: Soft, non-tender. Non-distended. No signs of trauma. EXTREMITIES: Patient has pain over the general right wrist with wincing although there is no swelling or deformity. Radial pulse normal, normal horseback excavator, normal capillary refill and sensation, normal upper extremity otherwise, normal lower extremities on exam. BACK: no cervical, thoracic, lumbar midline tenderness. No saddle anesthesia, normal distal neurovascular exam. Moves all extremities in full range of motion. NEUROLOGICAL: Alert and cooperative but not oriented to place or events. Normal speech. Cranial nerves II through XII grossly intact. Strength 5/5 in all extremities. PSYCH: Normal affect, normal mood. SKIN: Warm, dry, normal turgor. No rashes or lesions noted. Course - Re-evaluation Re-evalutation: CT of the head and neck without concerning normality. X-ray of the right wrist shows fracture of the distal radius and ulna, no concerning displacement noted, no reduction necessary. I did place the splint (ulnar gutter), provided with orthopedic referral, discussed head and precautions and placed this on her instructions because patient has Alzheimer's. Patient will be discharged back to the Alzheimer's facility. Patient cooperative and appreciative. - Vital Signs Vital signs: Temp Pulse Resp BP Pulse Ox 98.2 F 66 16 129/87 H 96 02/17/20 21:09 02/17/20 21:09 02/17/20 21:09 02/17/20 21:09 02/17/20 21:09 Procedures - Immobilization right wrist Pre-Proc Neuro Vasc Exam: Normal Immobilizer type: Sugar tong Performed by: Provider Post-Proc Neuro Vasc Exam: Normal Alignment checked and good: Yes Discharge - Discharge Clinical Impression: Fall Qualifiers: Encounter type: initial encounter Qualified Code(s): W19.XXXA - Unspecified fall, initial encounter Facial abrasion Qualifiers: Encounter type: initial encounter Qualified Code(s): S00.81XA - Abrasion of other part of head, initial encounter Wrist fracture Qualifiers: Encounter type: initial encounter Fracture type: closed Laterality: right Qualified Code(s): S62.101A - Fracture of unspecified carpal bone, right wrist, initial encounter for closed fracture Condition: Stable Disposition: HOME, SELF-CARE Additional Instructions: The x-rays of the wrist show fractures in the radius and ulnar bones. Wear the splint, follow-up with the orthopedics referral for cast placement (call tomorrow to set this up). Tylenol for pain. The CAT scan of the head and neck do not show any concerning findings. Please follow head injury cautions listed below. Return for any concerning symptoms. Head Injury Precautions At this point, there is no evidence that your head injury is serious. Observation is necessary, however. Limit activity for the first 24 hours. During the first 24 hours, check to see approximately every two to three hours that the patient is easily arousable, responds normally, and can perform common tasks such as walking without difficulty. Contact your doctor or go to the hospital if any of the following things occur: Persistent vomiting, difficulty in arousing the patient, worsening or continued headache, or failure to improve as expected. Head injuries can cause symptoms that persist for a few days or even a few weeks. Referrals: PETTY ARGUETA DO [ACTIVE STAFF] - Follow up in 3-5 days
[2020-02-17 21:09] VITALS: BP 129/87
--- NOTE | 2020-02-17 21:23 | RADIOLOGY REPORT (SQ) ---
EXAM DESCRIPTION: WRIST RIGHT 3 VIEWS [facility]: XR WRIST 3 OR MORE VIEWS Views: 3 CLINICAL HISTORY: 79 years Female; fall, pain; COMPARISON: None. FINDINGS: Bones are somewhat osteopenic. There is a subtle focal disruption with slight overlap at the ulnar margin of the distal radial metaphysis, suspicious for a mild impaction fracture. Alignment remains anatomic. Distal margin of the ulnar styloid is also displaced, estimated 2 mm, suspicious for fracture. Carpal bones are intact. No hyperdense foreign bodies. IMPRESSION: 1. Probable acute mild impaction fracture of the distal radial metaphysis 2. Slightly displaced ulnar styloid fracture
--- NOTE | 2020-02-17 21:24 | RADIOLOGY REPORT (SQ) ---
EXAM DESCRIPTION: Site: CT HEAD WITHOUT RP: CT HEAD WITHOUT IV CONTRAST CLINICAL HISTORY: 79 years Female; fall, pain; TECHNIQUE: Noncontrast CT head. All CT scans at this facility use dose modulation, iterative reconstruction, and/or weight based dosing when appropriate to reduce radiation dose to as low as reasonably achievable. COMPARISON: 09/20/2018 FINDINGS: Brain: Mild cerebral atrophy is similar to prior exam. No acute hemorrhage or mass effect. No acute cortical edema. Sinuses: Visualized portions of paranasal sinuses and mastoids are clear. Calvarium: No acute calvarial fractures or focal lesion. IMPRESSION: 1. No acute intracranial findings. 2. Mild atrophy as on prior exam
--- NOTE | 2020-02-17 21:28 | RADIOLOGY REPORT (SQ) ---
EXAM DESCRIPTION: Site: CT CERVICAL SPINE WITHOUT RP: CT CERVICAL SPINE WITHOUT IV CONTRAST CLINICAL HISTORY: 79 years Female; fall, pain; TECHNIQUE: Noncontrast cervical spine CT with sagittal and coronal reconstructions. All CT scans at this facility use dose modulation, iterative reconstruction, and/or weight based dosing when appropriate to reduce radiation dose to as low as reasonably achievable. COMPARISON: 09/20/2018 FINDINGS: C1: Partial calcification of the cruciate ligament. C3-C4: Osteophytic ridging with 2 mm retrolisthesis. Bilateral foraminal stenosis. C4-C5: Mild osteophytic ridging with mild foraminal stenosis. No subluxation. C5-C6: Broad posterior osteophytic ridging with mild right and moderate left foraminal stenosis. No subluxation. C6-C7: Mild osteophytic ridging. Severe left foraminal stenosis. No subluxation. There is no acute fracture of the cervical spine. No epidural hematoma. IMPRESSION: 1. No acute cervical spine fracture 2. Chronic degenerative changes as described.
== END 2020-02-17 22:33 | disposition home or self-care (01) ==
LOC: ER 15:19
DX: S62.101A Fracture of unspecified carpal bone, right wrist, initial encounter for closed fracture (principal); S00.81XA Abrasion of other part of head, initial encounter; S00.31XA Abrasion of nose, initial encounter; W01.0XXA Fall on same level from slipping, tripping and stumbling without subsequent striking against object, initial encounter; G30.9 Alzheimer's disease, unspecified; F02.80 Dementia in other diseases classified elsewhere, unspecified severity, without behavioral disturbance, psychotic disturbance, mood disturbance, and anxiety; Z88.2 Allergy status to sulfonamides; I25.2 Old myocardial infarction; Z90.710 Acquired absence of both cervix and uterus
CPT/HCPCS: 99284; 73110; 70450; 72125; 29125; A9270